=== PATIENT | female | born 1940 | race Caucasian/White ===

== ENCOUNTER 2018-12-05 19:56 | Observation (INO) ==
--- NOTE | 2018-12-05 20:24 | Emergency Department Note ---
Disposition Clinical Impression: Weakness, Dizziness UTI (urinary tract infection) Qualifiers: Urinary tract infection type: site unspecified Hematuria presence: without hematuria Qualified Code(s): N39.0 - Urinary tract infection, site not specified Disposition: Admitted As Inpatient Condition: Fair Referrals: NONE,PCP [Non-Partnered Physician] - Forms: ED Satisfaction Letter General Adult HPI - General Chief complaint: ED Chest Pain Stated complaint: chest pain/weakness/headache/left leg weakness Time Seen by Provider: 12/05/18 20:05 Source: patient, family Limitations: no limitations Nursing Notes Reviewed: Yes Vital Signs Reviewed: Yes - History of Present Illness HPI Narrative: Patient presenting to the emergency department with multiple complaints. Patient has had dizziness for the last 3 days. Significantly worse yesterday. Patient was having coffee with her son earlier today. Patient was having difficulty with slurred speech as well as word finding. Patient was significantly weak. Overall symptoms similar to prior previous stroke. Patient was having dizzy episodes while at rest. Patient then had a dizzy episode that was associated with chest pain. Chest pain to the center of her chest. Patient took home nitroglycerin with no relief. The patient states nothing is made her symptoms significant better or worse on their own. Just seemed to come and go. Patient not having significant chest pain at this time. Patient does have dizziness. Patient does have dizziness worse with movement of her eyes. Patient does have weakness to the left arm as well as to the left leg. Sensation is intact. Finger to nose has mild redirection of the left side. Patient does have left-sided deficits from the previous stroke. The patient will undergo further evaluation for possible stroke as well as for her cardiac and infectious etiologies. She will likely require admission for further delineation and management. Pain Scale: 10 - Related Data Home Medications Medication Instructions Recorded Confirmed ALPRAZolam [Xanax 0.25 MG Tablet] 0.25 mg PO TID 05/04/15 12/08/17 FLUoxetine HCl [Prozac] 20 mg PO DAILY 05/04/15 12/08/17 Hydrochlorothiazide [Microzide] 12.5 mg PO DAILY 05/04/15 12/08/17 Lisinopril [Zestril] 20 mg PO DAILY 05/04/15 12/08/17 Omeprazole [PriLOSEC] 20 mg PO DAILY 09/11/15 04/17/18 Isosorbide MONOnitrate (24 HR) 30 mg PO DAILY 12/19/16 12/08/17 [Imdur] Nitroglycerin [Nitrostat] 0.4 mg SL Q5M PRN 12/19/16 12/08/17 Previous Rx's Medication Instructions Recorded Aspirin 325 mg PO DAILY #60 tablet 05/05/15 Atorvastatin [Lipitor] 40 mg PO HS #60 tablet 05/05/15 Allergies Allergy/AdvReac Type Severity Reaction Status Date / Time Latex, Natural Rubber Allergy Itching Verified 12/19/16 09:49 prednisone Allergy See Verified 12/19/16 09:49 Comments All systems ED: reviewed and negative except as stated. Review of Systems: As Per HPI Constitutional: Reports: weakness. Denies: fever, chills Eyes: Denies: eye pain, eye discharge ENT ED: Denies: congestion Cardiovascular: Reports: chest pain, dyspnea on exertion. Denies: palpitations Respiratory: Reports: dyspnea. Denies: cough, wheezes Gastrointestinal: Reports: nausea. Denies: abdominal pain, vomiting Musculoskeletal: Reports: back pain (chronic) Integumentary: Denies: rash, abrasion, lesions Neurological: Reports: other (dizziness) Past Medical History - Past Medical History Medical history: Reports: coronary artery disease, CVA, GERD, hyperlipidemia, hypertension, renal disease Surgical history: Reports: appendectomy, hysterectomy Psychiatric history: Reports: anxiety, depression [employer]OR SUPERVISOR history: Reports: no [employer]FUSE [employer]OR SUPERVISOR history - Social History Smoking Status: Never smoker Smokeless Tobacco Status: No Alcohol use: Reports: none Drug use: Reports: none Physical Exam - General Limitations: no limitations General appearance: alert, in no apparent distress Course - Reevaluation(s) Reevaluation #1: Patient initial CT without specific etiology. Patient does have a urinary tract infection. Patient does have associated weakness and chest pain. No specific EKG changes. Patient's symptoms possibly exacerbation of old strokelike symptoms secondary to UTI however patient will need further evaluation for possi ble new stroke. Given the dizziness patient will undergo CTA prior to admission Reevaluation #2: Patient symptoms have improved somewhat on the emergency department. She feels better after hydration therapy. Patient CTA is negative for acute abnormality. Patient be admitted for further management of possible UTI as well as further stroke workup. Vital Signs Temperature 98.1 F 12/05/18 19:58 Pulse Rate 83 04/14/19 19:58 Respiratory Rate 22 12/05/18 19:58 Blood Pressure 125/89 12/05/18 19:58 O2 Sat by Pulse Oximetry 99 12/05/18 19:58 Temperature 98.1 F 12/05/18 19:58 Pulse Rate 68 12/06/18 00:00 Respiratory Rate 20 12/06/18 00:00 Blood Pressure 124/61 12/06/18 00:00 O2 Sat by Pulse Oximetry 99 12/06/18 00:00 Oxygen Delivery Oxygen Delivery Room Air Medical Decision Making - Medical Records Medical records reviewed: Yes I reviewed the patient's medical records. - Lab Data Lab results reviewed: Yes I reviewed the patient's lab results. Result diagrams: 12/05/18 20:09 12/05/18 20:09 Lab Results 12/05/18 12/05/18 12/05/18 Range/Units 20:09 20:09 20:09 WBC 7.4 (4.3-11.1) K/mcL RBC 4.57 (3.82-4.97) M/mcL Hgb 14.9 (11.5-15.4) g/dL Hct 45.4 H (35.3-44.9) % MCV 99.3 (83.0-100.0) fL MCH 32.6 (28.0-33.3) pg MCHC 32.8 (31.6-35.5) g/dL RDW 12.7 (11.5-14.5) % Plt Count 202 (140-400) K/mcL MPV 10.6 (9.4-12.4) fL PT 11.0 (9.4-12.1) Seconds INR 1.0 APTT 32.7 (26.0-36.0) Seconds Sodium 140 (136-145) mEq/L Potassium 3.9 (3.5-5.1) mEq/L Chloride 106 (98-107) mEq/L Carbon Dioxide 26 (23-29) mEq/L BUN 28 H (8-23) mg/dL Creatinine 1.01 (0.60-1.20) mg/dL Est GFR ( Amer) > 60 (> 60) Est GFR (Non-Af Amer) 53 L (> 60) BUN/Creatinine Ratio 28 H (6-26) Glucose 120 H (70-105) mg/dL Calculated Osmolality 297 (280-300) Calcium 9.3 (8.6-10.3) mg/dL Troponin I < 0.03 (< 0.04) ng/mL B-Natriuretic Peptide (Less than 100) pg/mL Urine Color (Yellow) Urine Clarity (Clear) Urine pH (5.0-8.0) pH Units Ur Specific [place] (1.010-1.025) Urine Protein (Neg-Trace) mg/dL Urine Glucose (UA) (Normal) mg/dL Urine Ketones (Negative) mg/dL Urine Blood (Negative) Urine Nitrite (Negative) Urine Bilirubin (Negative) Urine Urobilinogen (Normal) mg/dL Ur Leukocyte Esterase (Negative) Urine Microscopic RBC (0-3) per hpf Urine Microscopic WBC (0-3) per hpf Ur Squamous Epith Cells (None-Few) per lpf Urine Bacteria (None-Few) per hpf Hyaline Casts (None-Few) per lpf Ur Culture Indicated? (NO) 12/05/18 12/05/18 Range/Units 20:09 20:52 WBC (4.3-11.1) K/mcL RBC (3.82-4.97) M/mcL Hgb (11.5-15.4) g/dL Hct (35.3-44.9) % MCV (83.0-100.0) fL MCH (28.0-33.3) pg MCHC (31.6-35.5) g/dL RDW (11.5-14.5) % Plt Count (140-400) K/mcL MPV (9.4-12.4) fL PT (9.4-12.1) Seconds INR APTT (26.0-36.0) Seconds Sodium (136-145) mEq/L Potassium (3.5-5.1) mEq/L Chloride (98-107) mEq/L Carbon Dioxide (23-29) mEq/L BUN (8-23) mg/dL Creatinine (0.60-1.20) mg/dL Est GFR ( Amer) (> 60) Est GFR (Non-Af Amer) (> 60) BUN/Creatinine Ratio (6-26) Glucose (70-105) mg/dL Calculated Osmolality (280-300) Calcium (8.6-10.3) mg/dL Troponin I (< 0.04) ng/mL B-Natriuretic Peptide 36 (Less than 100) pg/mL Urine Color Yellow (Yellow) Urine Clarity Clear (Clear) Urine pH 7.0 (5.0-8.0) pH Units Ur Specific [place] 1.012 (1.010-1.025) Urine Protein Negative (Neg-Trace) mg/dL Urine Glucose (UA) Normal (Normal) mg/dL Urine Ketones Negative (Negative) mg/dL Urine Blood Negative (Negative) Urine Nitrite Negative (Negative) Urine Bilirubin Negative (Negative) Urine Urobilinogen Normal (Normal) mg/dL Ur Leukocyte Esterase Moderate H (Negative) Urine Microscopic RBC 5-15 H (0-3) per hpf Urine Microscopic WBC 30-50 H (0-3) per hpf Ur Squamous Epith Cells Many H (None-Few) per lpf Urine Bacteria None Seen (None-Few) per hpf Hyaline Casts None Seen (None-Few) per lpf Ur Culture Indicated? NO. A (NO) - Radiology Data Radiology results reviewed: Yes I reviewed the patient's radiology results. Head CT 12/05/18 20:20 IMPRESSION: 1. No acute intracranial abnormality. 2. Mild white matter hypoattenuation, likely the sequela of chronic small vessel ischemia. If there is persistent clinical concern for acute ischemia, MRI would be the more sensitive modality. D/ / [place] / [place] Interpreting Provider: [place] Chest X-Ray 12/05/18 20:21 IMPRESSION: No acute process. D/ / Tesfaye Sanchez MD / Tesfaye Sanchez MD Interpreting Provider: Tesfaye Sanchez MD Head CTA 12/05/18 22:00 IMPRESSION: No significant arterial narrowing in the head or the neck. Heterogeneous thyroid tissue likely benign. No follow-up imaging is recommended D/ / Ramses Ware / Ramses Ware Interpreting Provider: Ramses Ware Neck CTA 12/05/18 22:00 IMPRESSION: No significant arterial narrowing in the head or the neck. Heterogeneous thyroid tissue likely benign. No follow-up imaging is recommended D/ / Ramses Ware / [place] Ware Interpreting Provider: Ramses Ware - EKG Data EKG #1 EKG attestation: Yes I reviewed and interpreted this EKG. EKG results narrative: EKG shows sinus rhythm with a heart rate of 80 IN 156 QRS [address] elevations or depressions. Patient does have T-wave flattening in aVL. No other abnormalities compared to old EKG of 10/23/16.
[2018-12-05 20:35] LABS: Hematocrit 45.4 % (35.3-44.9); Hemoglobin 14.9 g/dL (11.5-15.4); Mean Corpuscular HGB Conc 32.8 g/dL (31.6-35.5); Mean Corpuscular Hemoglobin 32.6 pg (28.0-33.3); Mean Corpuscular Volume 99.3 fL (83.0-100.0); Mean Platelet Volume 10.6 fL (9.4-12.4); Platelet Count 202 K/mcL (140-400); Red Blood Count 4.57 M/mcL (3.82-4.97); Red Cell Distribution Width 12.7 % (11.5-14.5)
[2018-12-05 20:49] LABS: Activated Partial Thrombo Time 32.7 Seconds (26.0-36.0)
[2018-12-05 20:57] LABS: BUN/Creatinine Ratio 28 (6-26); Blood Urea Nitrogen 28 mg/dL (8-23); Calcium 9.3 mg/dL (8.6-10.3); Carbon Dioxide 26 mEq/L (23-29); Chloride 106 mEq/L (98-107); Glucose 120 mg/dL (70-105); Osmolality,Calculated 297 (280-300); Potassium 3.9 mEq/L (3.5-5.1); Sodium 140 mEq/L (136-145); Troponin I < 0.03 ng/mL (< 0.04); eGFR For Non-African Americans 53 (> 60)
[2018-12-05 21:13] LABS: Bilirubin,Urine Negative (Negative); Blood,Urine Negative (Negative); Clarity,Urine Clear (Clear); Color,Urine Yellow (Yellow); Glucose,Urine (UA) Normal (Normal); Ketones,Urine Negative (Negative); Leukocyte Esterase,Urine Moderate (Negative); Nitrite,Urine Negative (Negative); Protein,Urine Negative (Neg-Trace); Specific Gravity,Urine 1.012 (1.010-1.025); Urobilinogen,Urine Normal (Normal)
[2018-12-05 21:15] LABS: Bacteria,Urine None Seen per hpf (None-Few); Hyaline Casts,Urine None Seen per lpf (None-Few); Squamous Epithelial Cell,Urine Many per lpf (None-Few); WBC,Urine 30-50 per hpf (0-3)
[2018-12-05] MEDS ORDERED: 0.9 % Sodium Chloride 500 ML IVC ONE ×2 (21:22→22:15)
[2018-12-05] MEDS ORDERED: Isovue-370 500 ML BOTTLE IVP ONE (22:00)
[2018-12-05] MEDS ORDERED: cefTRIAXone 1,000 MG in Water for inj. (sterile) 20 ML 10 ML IVP ONE (23:11)
[2018-12-06 04:57] LABS: INR 1.1; Prothrombin Time 11.9 Seconds (9.4-12.1)
[2018-12-06 05:11] LABS: Alanine Aminotransferase 10 Units/L (7-52); Albumin 3.5 g/dL (3.5-5.7); Albumin/Globulin Ratio 1.8 (1.1-2.2); Alkaline Phosphatase 59 Units/L (34-104); Aspartate Amino Transferase 13 Units/L (13-39); BUN/Creatinine Ratio 24 (6-26); Bilirubin,Total 0.5 mg/dL (0.3-1.0); Blood Urea Nitrogen 22 mg/dL (8-23); Calcium 8.4 mg/dL (8.6-10.3); Carbon Dioxide 25 mEq/L (23-29); Chloride 109 mEq/L (98-107); Cholesterol 145 mg/dL (< 200); Globulin 1.9 g/dL (2.4-3.5); Glucose 135 mg/dL (70-105); HDL Cholesterol 48 mg/dL (40-59); LDL Cholesterol,Calculated 80 mg/dL (0-99); Osmolality,Calculated 297 (280-300); Potassium 3.9 mEq/L (3.5-5.1); Sodium 141 mEq/L (136-145); Total Protein 5.4 g/dL (6.4-8.9); Triglycerides 86 mg/dL (< 150); eGFR For Non-African Americans 59 (> 60)
[2018-12-06 05:12] LABS: Troponin I < 0.03 ng/mL (< 0.04)
--- NOTE | 2018-12-06 06:20 | Internal Med History&Physical ---
Date of Encounter: 12/06/18 Time of Encounter: 06:13 Internal Medicine - H&P: HPI Chief complaint: Headache Plans for Post Hospital Care: Home History of present illness: Ms. Agudelo is a 78 year old female with a past medical history of coronary artery disease, CVA, GERD, hyperlipidemia, hypertension and migraine who presented to the ED with complaints of dizziness that has gotten progressively worse over the past 3 days. Yesterday she also noted slurred speech and word finding difficulties. Patient reports similar presentation during previous stroke. A also endorses chest pain that occurred with her dizzy spell located in the center of her chest associated with sensations of palpitation and nausea. Patient took nitroglycerin at home with no relief. Patient also reports left- sided neck pain radiating to the back of her ear with ear pain as well. No reports of rash. No reports of fever, chills, shortness of breath, vomiting or diarrhea. CT angiogram of the head and neck demonstrated no significant arterial narrowing. Lab workup was relatively unremarkable. EKG showed no ischemic changes. UA suggestive of UTI. Patient admitted for stroke workup. Past Med Surg Social Fam HX - Past Medical History Medical history: coronary artery disease, CVA, GERD, hyperlipidemia, hypertension, renal disease Additional medical history: Left side weakness Psychiatric history: anxiety, depression - Past Surgical History Surgical History: appendectomy, hysterectomy Additional surgical history: bladder tuck, kidney stone removal - Social History Smoking Status: Never smoker Smokeless Tobacco Status: No Alcohol use: none Drug use: none - Family History Mother Living Status: Age at : 63 Cause of : COPD Father Living Status: Age at : 54 Cause of : heart attack Internal Medicine - H&P: Meds FLUoxetine HCl [Prozac] 20 mg PO DAILY 05/04/15 [History] Hydrochlorothiazide [Microzide] 12.5 mg PO DAILY 05/04/15 [History] Lisinopril [Zestril] 20 mg PO DAILY 05/04/15 [History] Atorvastatin [Lipitor] 40 mg PO HS #60 tablet 05/05/15 [Rx] Isosorbide MONOnitrate (24 HR) [Imdur] 30 mg PO DAILY 12/19/16 [History] Nitroglycerin [Nitrostat] 0.4 mg SL Q5M PRN 12/19/16 [History] Aspirin [Lo-Dose Aspirin EC] 81 mg PO DAILY 12/06/18 [History] Pantoprazole Sodium 40 mg PO DAILY 12/06/18 [History] Ranolazine [Ranexa] 500 mg PO BID 12/06/18 [History] Allergy/AdvReac Type Severity Reaction Status Date / Time Latex, Natural Rubber Allergy Itching Verified 12/19/16 09:49 prednisone Allergy See Verified 12/19/16 09:49 Comments All Systems PM: A 10-system review of systems was performed and is negative for pertinent findings except as documented above in the HPI. - Constitutional Constitutional: no chills, no fever(s), no night sweats - EENT Eyes: no change in vision, no discharge, no pain, no photophobia Ears: no ear discharge, no ear pain, no tinnitus Nose, mouth and throat: no dysphagia, no nasal discharge, no neck pain, no sore throat - Cardiovascular Cardiovascular ROS IM: no chest pain, no diaphoresis, no dyspnea, no lighthe adedness, no palpitations, no syncope - Respiratory Respiratory: no cough, no dyspnea, no wheezing, no excessive phlegm production - Gastrointestinal Gastrointestinal: no abdominal pain, no diarrhea, no hematemesis, no hem atochezia, no melena, no nausea, no vomiting - Genitourinary Genitourinary: no change in urinary stream, no dysuria, no flank pain, no hematuria - Musculoskeletal Musculoskeletal ROS IM: no numbness, no tingling - Integumentary Integumentary IM: no rash, no unusual bruising - Neurological Neurological ROS: no confusion, no convulsions, no focal weakness, no numbness, no tingling, no tremor(s) - Hematologic/Lymphatic Hematologic/Lymphatic: no easy bruising - Constitutional Vitals: Temp Pulse Resp BP Pulse Ox 97.6 F 60 14 152/70 98 12/06/18 02:16 12/06/18 02:16 12/06/18 02:16 12/06/18 02:16 12/06/18 02:16 Exam: General: Alert and oriented 3 lying in bed in no acute distress Skin:Normal color, no rash, no lesions. HEENT:EOM, pupils equal, round and reactive. Cardiovascular:Normal S1 & S2, no rubs, murmurs or gallops. No JVD. Pulse regular. Lungs:Normal breath sounds, no wheezes or crackles. Abdomen:Soft, non-tender, no rigidity. Extremities:No deformity, no edema or tenderness, no joint swelling or clubbing. Neurological:Normal cognition ; cranial nerves II through XII intact. Mild left-sided pronator drift. Lower extremity muscle strength 4 out of 5 right; 3 out of 5 left; upper extremity strength 5 out of 5 right; 3 out of 5 left earache sensation intact. Pulses:Carotid and radial pulses normal +2. Rest of the physical exam is non contributory Internal Med - H&P Results - Labs CBC & Chem 7: 12/05/18 20:09 12/06/18 04:19 Labs: Short CBC 12/05/18 Range/Units 20:09 WBC 7.4 (4.3-11.1) K/mcL Hgb 14.9 (11.5-15.4) g/dL Hct 45.4 H (35.3-44.9) % Plt Count 202 (140-400) K/mcL BMP 12/05/18 12/06/18 20:09 04:19 Sodium 140 141 Potassium 3.9 3.9 Chloride 106 109 H Carbon Dioxide 26 25 BUN 28 H 22 Creatinine 1.01 0.92 Glucose 120 H 135 H Calcium 9.3 8.4 L Cardiac Enzymes 12/05/18 12/06/18 Range/Units 20:09 04:19 Troponin I < 0.03 < 0.03 (< 0.04) ng/mL Liver Function 12/06/18 Range/Units 04:19 Total Bilirubin 0.5 (0.3-1.0) mg/dL AST 13 (13-39) Units/L ALT 10 (7-52) Units/L Alkaline Phosphatase 59 (34-104) Units/L Albumin 3.5 (3.5-5.7) g/dL Urine 12/05/18 Range/Units 20:52 Urine Color Yellow (Yellow) Urine Clarity Clear (Clear) Urine pH 7.0 (5.0-8.0) pH Units Ur Specific [place] 1.012 (1.010-1.025) Urine Protein Negative (Neg-Trace) mg/dL Urine Glucose (UA) Normal (Normal) mg/dL - Impressions ITS Impressions Head CT 12/05/18 20:20 IMPRESSION: 1. No acute intracranial abnormality. 2. Mild white matter hypoattenuation, likely the sequela of chronic small vessel ischemia. If there is persistent clinical concern for acute ischemia, MRI would be the more sensitive modality. D/ / [place] / [place] Interpreting Provider: [place] Chest X-Ray 12/05/18 20:21 IMPRESSION: No acute process. D/ / Tesfaye Sanchez MD / Tesfaye Sanchez MD Interpreting Provider: Tesfaye Sanchez MD Head CTA 12/05/18 22:00 IMPRESSION: No significant arterial narrowing in the head or the neck. Heterogeneous thyroid tissue likely benign. No follow-up imaging is recommended D/ / Ramses Ware / Ramses Ware Interpreting Provider: Ramses Ware Neck CTA 12/05/18 22:00 IMPRESSION: No significant arterial narrowing in the head or the neck. Heterogeneous thyroid tissue likely benign. No follow-up imaging is recommended D/ / Ramses Ware / Ramses Ware Interpreting Provider: Ramses Ware - Assessment and Plan (1) Dizziness Current Visit: Yes Status: Acute Assessment and plan: Patient presents with dizziness described as the room spinning associated with nausea and word finding difficulty. Concern for posterior circulatory stroke. CT angiogram of the head and neck was unremarkable. Symptoms appear to have improved with fluids. -Allow for permissive hypertension -By mouth aspirin 325 once -Neurochecks -We will obtain echocardiogram and MRI in the morning. -Appreciate neurology input (2) Chest pain Current Visit: No Status: Acute Assessment and plan: Patient reports substernal chest pain. Patient has a history of coronary artery diseas. Patient underwent left heart catheter approximately one year ago which showed EF of 65% with single-vessel coronary artery disease. EKG and troponins 2 were unremarkable. No further reports of chest pain at this time. - telemetry - echocardiogram - continue workup for possible stroke - consider clear stress test once stroke ruled out Qualifiers: Ischemic chest pain type: unspecified angina pectoris type Qualified Code(s): I25.9 - Chronic ischemic heart disease, unspecified (3) UTI (urinary tract infection) Current Visit: Yes Status: Acute Assessment and plan: UA shows moderate leukocyte esterase. Patient received 1 dose of ceftriaxone in the ED. Urine cultures were obtained. We will continue ceftriaxone for now and follow-up culture Qualifiers: Urinary tract infection type: site unspecified Hematuria presence: without hematuria Qualified Code(s): N39.0 - Urinary tract infection, site not specified (4) Anxiety and depression Current Visit: No Status: Acute (5) DVT prophylaxis Current Visit: No Status: Acute Assessment and plan: Subcutaneous heparin - Time Spent With Patient Total time spent is greater than 50% in coordination of care (as documented) at patient's floor/unit and/or counseling patient:
[2018-12-06] MEDS ORDERED: Aspirin 325 MG TABLET PO ONE (06:38)
[2018-12-06] MEDS ORDERED: Naloxone 0.4 MG/ML INJ IVP PRN (06:52)
[2018-12-06] MEDS: *HR* Heparin 5,000 UNIT/ML VIAL SQ SCH ×3 (07:44→22:58)
[2018-12-06] MEDS: Acetaminophen 325 MG TABLET PO PRN ×2 (07:47→20:06)
[2018-12-06 08:25] LABS: Estimated Average Glucose 128 mg/dl; Hemoglobin A1C 6.1 %
--- NOTE | 2018-12-06 08:59 | Neurology - Consult Note ---
<Sean Thornton - Last Filed: 12/06/18 11:42> Date of Encounter: 12/06/18 Time of Encounter: 09:10 Assessment and Plan (1) Dizziness Current Visit: Yes Status: Acute - Differential for this is wide including BPPV, brainstem stroke, shingles, vestibular neuritis, otitis media, bells palsy Plan - Agree with MRI to rule out ischemia - Recommend starting trial dose of acyclovir 400 mg 5x daily as well as prednisone 60 mg daily x 5 days, however patient is reportedly allergic to prednisone. Unclear reaction. - (2) Benign paroxysmal positional vertigo Current Visit: No Status: Acute History of Present Illness Chief complaint: Dizziness HPI: Ms. Agudelo is a 78 year old female with past medical history of CAD, CVA, GERD, hyperlipidemia, hypertension, migraine presents emergency department with complaints of dizziness 3 days. She states that over the past 3 days, she does feel like the room is spinning with no inciting events. She has expressed this before, approximately 10 years ago when she had her first and only CVA. She has no residual deficits following this. She states since her admission, her symptoms have improved. She denies any symptoms of fevers, chills, chest pain, shortness of breath, dysphagia, dysarthria. She was noted to have slurred speech and word finding difficulties or to admission, per admitting H&P. She is not having any focal weakness, numbness, tingling, memory issues at this time. has also been seen and evaluated by neurology in the past. On 05/04/15 she was admitted to the hospital for unresponsive episode and this was thought to be secondary to dehydration. At that time, she was also suspected to have bppv given her left ear pain as well as vertigo particularly with movement. At that time however she was not discharged on a prescription of Antivert. In the emergency room, vital signs are significant for a respiratory rate of 22, otherwise within normal limits and she was tolerating 99% on room air. Head CT was obtained and showed no acute intracranial abnormality but did show mild white matter hypoattenuation which was thought to be likely a sequela of chronic small vessel ischemia. Chest x-ray was negative. Head and neck CTA was also performed and showed no significant arterial narrowing in the head or the neck. Today during examination, patient's symptoms have improved although she still is having a little bit of lightheadedness but this feels different. She is also complaining of severe left-sided neck pain which is located in the left parietal region extending from her hairline to her shoulder. This has been present since admission. She is not having any difficulty moving her neck but does admit to pain with movement as well as mild pain with palpation. Past Med Surg Social Fam HX - Past Medical History Medical history: coronary artery disease, CVA, GERD, hyperlipidemia, hypertension, renal disease Additional medical history: Left side weakness Psychiatric history: anxiety, depression - Past Surgical History Surgical History: appendectomy, hysterectomy Additional surgical history: bladder tuck, kidney stone removal - Social History Smoking Status: Never smoker Smokeless Tobacco Status: No Alcohol use: none Drug use: none - Family History Mother Living Status: Age at : 63 Cause of : COPD Father Living Status: Age at : 54 Cause of : heart attack Medications and Allergies ALPRAZolam [Xanax 0.25 MG Tablet] 0.25 mg PO TID 05/04/15 [History] FLUoxetine HCl [Prozac] 20 mg PO DAILY 05/04/15 [History] Hydrochlorothiazide [Microzide] 12.5 mg PO DAILY 05/04/15 [History] Lisinopril [Zestril] 20 mg PO DAILY 05/04/15 [History] Omeprazole [PriLOSEC] 20 mg PO DAILY 05/04/15 [History] Aspirin 325 mg PO DAILY #60 tablet 05/05/15 [Rx] Atorvastatin [Lipitor] 40 mg PO HS #60 tablet 05/05/15 [Rx] Isosorbide MONOnitrate (24 HR) [Imdur] 30 mg PO DAILY 12/19/16 [History] Nitroglycerin [Nitrostat] 0.4 mg SL Q5M PRN 12/19/16 [History] Allergy/AdvReac Type Severity Reaction Status Date / Time Latex, Natural Rubber Allergy Itching Verified 12/19/16 09:49 prednisone Allergy See Verified 12/19/16 09:49 Comments All Systems: The remainder of the systems were reviewed and are negative Review of Systems: - Constitutional: Denies fevers, chills, weight loss, generalized fatigue - Head/Neck: Admits to neck pain. Denies DUARTE, neck stiffness - EENT: Denies vision changes/blurriness, tinnitus, auditory changes, rhinorrhea, congestion, sore throat, odynaphagia - CVS: Denies chest pain, palpitations - Pulm: Denies SOB, cough, sputum - Skin: Denies rashes, ulcers, color changes, - Neuro: Denies DUARTE, paresthesias, focal deficits, ataxia, n/t Physical Examination - Vital Signs Vital Signs: Initial Vital Signs Temp Pulse Resp BP Pulse Ox 98.1 F 83 22 125/89 99 12/05/18 19:58 12/05/18 19:58 12/05/18 19:58 12/05/18 19:58 12/05/18 19:58 - Constitutional General appearance: comfortable - Neurologic Sensorimotor examination: intact Detailed motor examination: grossly full strength in all extremities Motor examination - right side: 4/5: deltoids, biceps, triceps, complaint investigator, hip flexors, tibialis Anterior, quadriceps, plantarflexion Motor examination - left side: 4/5: deltoids, biceps, triceps, hip flexors, complaint investigator, quadriceps, tibialis Anterior, plantarflexion Detailed sensory examination: intact Reflexes: Biceps: 2+, Patella: 2+ Mental Status Examination: awake, alert, oriented to person, oriented to place, oriented to time, follows commands appropriately, answers questions appropriately, no aphasia Cranial nerve examination: PERRL, EOMI, visual [place] intact, sensory to face in tact, no facial asymmetry is present, no dysarthria, hearing is intact symmetrically, soft palate elevates bilaterally upon phonation, flexes SCM and trapezius muscles symmetrically with full power, tongue protrudes midline Cerebellar examination: performs finger to nose and heel to white symmetrically without ataxia Results - Laboratory Findings CBC and BMP: 12/05/18 20:09 12/06/18 04:19 Abnormal lab findings: Abnormal lab results Hct 45.4 % (35.3-44.9) H 12/05/18 20:09 Chloride 109 mEq/L (98-107) H 12/06/18 04:19 Est GFR (Non-Af Amer) 59 (> 60) L 12/06/18 04:19 Glucose 135 mg/dL (70-105) H 12/06/18 04:19 Hemoglobin A1c 6.1 % (-5.6) H 12/06/18 04:19 Calcium 8.4 mg/dL (8.6-10.3) L 12/06/18 04:19 Serum Total Protein 5.4 g/dL (6.4-8.9) L 12/06/18 04:19 Globulin 1.9 g/dL (2.4-3.5) L 12/06/18 04:19 Ur Leukocyte Esterase Moderate (Negative) H 12/05/18 20:52 Urine Microscopic RBC 5-15 per hpf (0-3) H 12/05/18 20:52 Urine Microscopic WBC 30-50 per hpf (0-3) H 12/05/18 20:52 Ur Squamous Epith Cells Many per lpf (None-Few) H 12/05/18 20:52 Ur Culture Indicated? NO. (NO) A 12/05/18 20:52 Consult Discharge Plan - Plan Referrals: Yaniv Tran, [Primary Care Provider] - <Alexandro Solorio - Last Filed: 12/06/18 13:08> Date of Encounter: 12/06/18 Assessment and Plan (1) Dizziness Current Visit: Yes Status: Acute I have personally performed a [id number] assessment of the patient and have reviewed the PA/BACON STRINGER note. My impressions are as follows: I agree with the differential diagnosis in the plan presented by the neurology resident. We will obtain an MRI scan of the brain to rule out evidence of brainstem ischemia. If the MRI scan is negative then I will defer further management of the vestibular neuronitis to the primary care team. I agree with the acyclovir and steroid therapy as well. We will reassess after the MRI. History of Present Illness HPI: I have personally performed a [id number] assessment of the patient and have reviewed the PA/BACON STRINGER note. My impressions are as follows: The chart was reviewed, the patient was seen and examined independently. His was discussed with the neurology resident. I agree with his assessment of the history of present illness as stated above. She does have symptoms of left mastoid pain radiating into the neck that she rates at about 8 on a scale of 10. Also complains of vertigo in addition had slurred speech and numbness and weakness of the left arm and leg. She states that she has been dragging her leg to continue to a previous stroke. I did examine her tympanic membranes bilaterally in the left TM was erythematous and retracted. All Systems: The remainder of the systems were reviewed and are negative Review of Systems: The balance of the systems review is negative. Physical Examination - Vital Signs Vital Signs: Initial Vital Signs Temp Pulse Resp BP Pulse Ox 98.1 F 83 22 125/89 99 12/05/18 19:58 12/05/18 19:58 12/05/18 19:58 12/05/18 19:58 12/05/18 19:58 - Exam Exam: General Examination: *CONSTITUTIONAL: normal *GENERAL APPEARANCE OF PATIENT appears healthy and well groomed *EYES: pupils equal, round, reactive to light and accommodation, conjunctiva clear without masses or ulcerations, fundi normal. *CARDIOVASCULAR no peripheral edema, distal temperature normal, dorsalis pedis pulses normal. Refer to vital signs Musculoskeletal: *GAIT AND STATION normal, with normal Romberg testing, no abnormalities such as broad base gait or spasticity *ASSESSMENT OF MUSCLE STRENGTH IN THE UPPER AND LOWER EXTREMITIES is normal strength bulk of the right deltoid, right biceps right triceps and right complaint investigator. She also has normal strength of the right hip flexors quadriceps right anterior tibialis and gastrocnemius muscles. There is giveaway weakness of the muscles of the left upper extremity as well as the left lower extremity. *MUSCLE TONE IN THE UPPER AND LOWER EXTREMITIES normal. No abnormal movements, fasciculations or atrophy identified. Neurological: *ORIENTATION to time and place *RECURRENT AND REMOTE MEMORY intact *ATTENTION AND CONCENTRATION are normal *LANGUAGE FUNCTION no significant aphasia or dysarthia was noted. *FUND OF KNOWLEDGE aware of current events, past history, vocabulary *MENTAL attention span and concentration normal. *CN II optic fundi were normal, no papilledema noted. *CN III,IV, PERRLA extraocular eye movements were full, no nystagmus and no ptosis noted. *CN V shows normal sensation and jaw opens symmetrically. *CN VII shows normal facial movement symmetrically, upper and lower bilaterally. *CN VIII shows no significant hearing loss on examination in the office. *CN IX,,X palate elevated symmetrically and normal gag reflex was noted. *CN XI normal strength in the sternocleidomastoid muscles, symmetrical shoulder shrugging. *CN XII tongue protruded in the midline, with normal strength and movemen t. *SENSORY EXAMINATION pinprick sensation intact, and light touch(vibration sense). *REFLEXES: deep tendon reflexes were normal and symmetrical , grade 2/4 diffusely, no pathological reflexes were noted. *CEREBELLAR TESTING normal finger to nose, heel/knee/white, and tandem wal k. *PAIN LEVEL -0 Results - Laboratory Findings CBC and BMP: 12/05/18 20:09 12/06/18 04:19 Abnormal lab findings: Abnormal lab results Hct 45.4 % (35.3-44.9) H 12/05/18 20:09 Chloride 109 mEq/L (98-107) H 12/06/18 04:19 Est GFR (Non-Af Amer) 59 (> 60) L 12/06/18 04:19 Glucose 135 mg/dL (70-105) H 12/06/18 04: Hemoglobin A1c 6.1 % (-5.6) H 12/06/18 04:19 Calcium 8.4 mg/dL (8.6-10.3) L 12/06/18 04:19 Serum Total Protein 5.4 g/dL (6.4-8.9) L 12/06/18 04:19 Globulin 1.9 g/dL (2.4-3.5) L 12/06/18 04:19 Ur Leukocyte Esterase Moderate (Negative) H 12/05/18 20:52 Urine Microscopic RBC 5-15 per hpf (0-3) H 12/05/18 20:52 Urine Microscopic WBC 30-50 per hpf (0-3) H 12/05/18 20:52 Ur Squamous Epith Cells Many per lpf (None-Few) H 12/05/18 20:52 Ur Culture Indicated? NO. (NO) A 12/05/18 20:52
[2018-12-06] MEDS: Acyclovir 200 MG CAPSULE PO SCH ×4 (12:39→22:58)
[2018-12-06] MEDS ORDERED: Nitroglycerin 0.4 MG TAB.SUBL SL PRN (16:00)
[2018-12-06] MEDS ORDERED: ALPRAZolam 0.25 MG TABLET PO PRN (16:00)
--- NOTE | 2018-12-06 16:00 | Internal Med Progress Note ---
Hospitalist Progress Note - Encounter Date of Encounter: 12/06/18 Time of Encounter: 15:30 - Subjective Interval History: Ms. Agudelo is a 78 year old female with a past medical history of coronary artery disease, CVA, GERD, hyperlipidemia, hypertension and migraine who presented to the ED with complaints of dizziness that has gotten progressively worse over the past 3 days. Yesterday she also noted slurred speech and word finding difficulties. Patient reports similar presentation during previous stroke. She also c/o chest pain, located sub sternally, non radiating and associated with diaphoresis. She denied any more active CP now. She still feels dizzy and vertigo. - Exam Vitals: Temp Pulse Resp BP Pulse Ox 97.8 F 66 15 131/57 98 12/06/18 14:39 12/06/18 14:39 12/06/18 14:39 12/06/18 14:39 12/06/18 14:39 Exam: Gen: Alert, awake, Oriented to time,place and person Chest: Diminished breath sounds B/L, No wheezing, No crackles, No rales Heart: S1S2+ RRR No murmurs Abd: Soft, NT, BS +, No organomegaly Ext: No edema, pulses are palpable, No calf tenderness Neuro : Benign findings, no focal neuro deficit Skin: No rash. - Assessment and Plan (1) Dizziness Current Visit: Yes Status: Acute Assessment and Plan: Her symptoms are consistent with benign positional vertigo however still need to rule out posterior circulation CVA will follow-up on brain MRI continue aspirin and statin appreciate neurology recommendations placed on meclizine (2) Chest pain Current Visit: No Status: Acute Assessment and Plan: So far serial troponin's were negative no acute EKG changes noticed continue aspirin will follow-up echocardiogram since patient is high risk for ACS will consider nuclear stress test in the morning (3) Anxiety and depression Current Visit: No Status: Acute Assessment and Plan: Resumed home medications (4) DVT prophylaxis Current Visit: No Status: Acute Assessment and Plan: Subcutaneous heparin (5) UTI (urinary tract infection) Current Visit: Yes Status: Acute Assessment and Plan: UA shows moderate leukocyte esterase. Continue IV Rocephin will follow-up on urine culture - Time Spent with Patient Total time spent is greater than 50% in coordination of care (as documented) at patient's floor/unit and/or counseling patient: Internal Medicine: Result - Labs CBC & Chem 7: 12/05/18 20:09 12/06/18 04:19 Labs: Short CBC 12/05/18 Range/Units 20:09 WBC 7.4 (4.3-11.1) K/mcL Hgb 14.9 (11.5-15.4) g/dL Hct 45.4 H (35.3-44.9) % Plt Count 202 (140-400) K/mcL BMP 12/05/18 12/06/18 20:09 04:19 Sodium 140 141 Potassium 3.9 3.9 Chloride 106 109 H Carbon Dioxide 26 25 BUN 28 H 22 Creatinine 1.01 0.92 Glucose 120 H 135 H Calcium 9.3 8.4 L Cardiac Enzymes 12/05/18 12/06/18 Range/Units 20:09 04:19 Troponin I < 0.03 < 0.03 (< 0.04) ng/mL Liver Function 12/06/18 Range/Units 04:19 Total Bilirubin 0.5 (0.3-1.0) mg/dL AST 13 (13-39) Units/L ALT 10 (7-52) Units/L Alkaline Phosphatase 59 (34-104) Units/L Albumin 3.5 (3.5-5.7) g/dL Urine 12/05/18 Range/Units 20:52 Urine Color Yellow (Yellow) Urine Clarity Clear (Clear) Urine pH 7.0 (5.0-8.0) pH Units Ur Specific [place] 1.012 (1.010-1.025) Urine Protein Negative (Neg-Trace) mg/dL Urine Glucose (UA) Normal (Normal) mg/dL - ABG Interpretation ABG results: PT/INR, D-dimer PT 11.9 Seconds (9.4-12.1) 12/06/18 04:19 - Impressions Impressions Head CT 12/05/18 20:20 IMPRESSION: 1. No acute intracranial abnormality. 2. Mild white matter hypoattenuation, likely the sequela of chronic small vessel ischemia. If there is persistent clinical concern for acute ischemia, MRI would be the more sensitive modality. D/ / aLke Col[place] / [place] Interpreting Provider: [place] Chest X-Ray 12/05/18 20:21 IMPRESSION: No acute process. D/ / Tesfaye Sanchez MD / Tesfaye Sanchez MD Interpreting Provider: Tesfaye Sanchez MD Head CTA 12/05/18 22:00 IMPRESSION: No significant arterial narrowing in the head or the neck. Heterogeneous thyroid tissue likely benign. No follow-up imaging is recommended D/ / Ramses Ware / Ramses Ware Interpreting Provider: Ramses Ware Neck CTA 12/05/18 22:00 IMPRESSION: No significant arterial narrowing in the head or the neck. Heterogeneous thyroid tissue likely benign. No follow-up imaging is recommended D/ / Ramses Ware / Ramses Ware Interpreting Provider: Ramses Ware Consult Discharge Plan - Plan Referrals: Yaniv Tran DO [Primary Care Provider] - (5) UTI (urinary tract infection) Qualifiers: Urinary tract infection type: site unspecified Hematuria presence: without hematuria Qualified Code(s): N39.0 - Urinary tract infection, site not specified
[2018-12-06] MEDS ORDERED: Isosorbide MONOnitrate (24 HR) 30 MG TAB.ER.24H PO SCH (16:15)
[2018-12-06] MEDS: Lisinopril 20 MG TABLET PO SCH (16:32)
--- NOTE | 2018-12-06 16:43 | Electrocardiograph Report ---
[address] [place], [place] [address] Test Date: 2018-12-05 Pat Name: Joslyn Agudelo Department: [id number] Room: 3B54 Gender: F Sas Bi Developer: : 1940 Requested By: [place] Bacon Order Number: [id number] Reading MD: Josh Duarte Measurements Intervals [place] Rate: 80 P: 71 SD: 156 QRS: 73 QRSD: 91 T: 57 QT: 369 QTc: 426 Interpretive Statements Sinus rhythm Electronically Signed On 12-06-2018 16:41:48 EDT by Josh Duarte
[2018-12-07] MEDS ORDERED: cefTRIAXone 1,000 MG in Water for inj. (sterile) 20 ML 10 ML IVP SCH
[2018-12-07] MEDS: *HR* Heparin 5,000 UNIT/ML VIAL SQ SCH ×2 (05:07→13:29)
[2018-12-07] MEDS ORDERED: Regadenoson 0.4 MG/5 ML SYRINGE IVP ONE (06:26)
[2018-12-07] MEDS ORDERED: FLUoxetine 20 MG CAPSULE PO SCH (09:00)
[2018-12-07] MEDS ORDERED: Aspirin 325 MG TABLET PO SCH (09:00)
--- NOTE | 2018-12-07 09:14 | Neurology Progress Note ---
<Sean Thornton - Last Filed: 12/07/18 15:23> Date of Encounter: 12/07/18 Time of Encounter: 10:38 Assessment and Plan (1) Dizziness Current Visit: Yes Status: Acute - Differential for this is wide including BPPV, shingles, vestibular neuritis, otitis media, bells palsy - Rays for stroke unlikely at this time given negative MRI as below - MRI of the brain on 12/06/18 shows no acute infarct with chronic white matter changes - Patient does report improvement of symptoms today - Acyclovir started yesterday, patient tolerating well - Prednisone was not started as she reports an allergy to prednisone. She states that she becomes dizzy after administration however this was a long time ago - Started on ceftriaxone yesterday per primary team for suspected UTI Plan - Agree with MRI to rule out ischemia - Recommend continuing trial dose of acyclovir 400 mg 5x daily - Recommend continue aspirin and statin - Continue antivert as needed. 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 Brock was seen and examined at bedside this morning. She states that overall she is doing better and her headache and neck pain have improved with medication. Her dizziness is much improved with antivert. Her head and neck pain are still present but this is improved with tylenol No overnight events. Objective - Constitutional Vitals: Temp Pulse Resp BP Pulse Ox 97.8 F 74 16 132/68 96 12/07/18 03:42 12/07/18 03:42 12/07/18 03:42 12/07/18 03:42 12/07/18 03:42 General appearance: Present: cooperative, A&O X 3, no acute distress, answers questions appropriately - Head Head exam: Present: atraumatic, normal inspection, normocephalic - Eye Eye exam: Present: EOMI, PERRL - Neurological Exam Sensorimotor examination: Present: intact Motor Examination: Present: grossly full strength in all extremities Motor examination - right side: 45: biceps, triceps, back end developer, hip flexors, tibialis Anterior, quadriceps, toe extension (EHL), plantarflexion Motor examination - left side: 45: deltoids, biceps, triceps, hip flexors, back end developer, quadriceps, tibialis Anterior, plantarflexion Sensation intact: Present: intact Reflexes: Biceps: 2+, Patella: 2+ Mental Status Examination: Present: awake, alert, oriented to person, oriented to place, oriented to time, follows commands appropriately, answers questions appropriately, no aphasia Cranial nerve examination: Present: PERRL, EOMI, visual hatfield intact, sensory to face intact, no facial asymmetry is present, no dysarthria, hearing is intact symmetrically, soft palate elevates bilaterally upon phonation, flexes SCM and trapezius muscles symmetrically with full power, tongue protrudes midline Cerebellar examination: Present: performs finger to nose and heel to white sym metrically without ataxia Results - Laboratory Findings CBC and BMP: 12/05/18 20:09 12/06/18 04:19 Abnormal lab findings: Abnormal lab results Hct 45.4 % (35.3-44.9) H 12/05/18 20:09 Chloride 109 mEq/L (98-107) H 12/06/18 04:19 Est GFR (Non-Af Amer) 59 (> 60) L 12/06/18 04:19 Glucose 135 mg/dL (70-105) H 12/06/18 04:19 Hemoglobin A1c 6.1 % (-5.6) H 12/06/18 04:19 Calcium 8.4 mg/dL (8.6-10.3) L 12/06/18 04:19 Serum Total Protein 5.4 g/dL (6.4-8.9) L 12/06/18 04:19 Globulin 1.9 g/dL (2.4-3.5) L 12/06/18 04:19 Ur Leukocyte Esterase Moderate (Negative) H 12/05/18 20:52 Urine Microscopic RBC 5-15 per hpf (0-3) H 12/05/18 20:52 Urine Microscopic WBC 30-50 per hpf (0-3) H 12/05/18 20:52 Ur Squamous Epith Cells Many per lpf (None-Few) H 04/14/19 20:52 Ur Culture Indicated? NO. (NO) A 12/05/18 20:52 Consult Discharge Plan - Plan Instructions: Cephalexin (By mouth), Meclizine (By mouth), Urinary Tract Infection in Women (DC) Referrals: Yaniv Tran, [Primary Care Provider] - (Your appointment has been requested. Our offices will call with an appointment time and date. If you do not hear from us please call [phone] and schedule an appointment.) Prescriptions: Cephalexin [Keflex] 500 mg PO TID #9 capsule Meclizine [Antivert] 12.5 mg PO BID PRN #20 tablet PRN Reason: Vertigo <Alexandro Solorio - Last Filed: 12/07/18 16:25> Date of Encounter: 12/07/18 Assessment and Plan (1) Dizziness Current Visit: Yes Status: Acute I have personally performed a [id number] assessment of the patient and have reviewed the PA/HAND STRAIGHTENER note. My impressions are as follows: Case was discussed with the neurology resident on service. I agree with his assessment and plan as outlined above. Agree with a brief outpatient course of acyclovir in the event that we are dealing with a herpetic etiology for her otalgia. Otherwise, would recommend having her follow-up with her primary care provider after discharge. He may dis charge her at your discretion. Subjective Interval history: Chart was reviewed, patient was seen and examined. Case was discussed with the neurology resident on service. Patient is doing better regard to her vertiginous symptoms. She is responding favorably to meclizine. MRI scan of the brain was negative for any evidence of acute infarct or any other intracranial process. Objective - Constitutional Vitals: Temp Pulse Resp BP Pulse Ox 97.7 F 104 19 159/70 90 12/07/18 15:58 12/07/18 15:58 12/07/18 15:58 12/07/18 15:58 12/07/18 15:58 Exam: Exam: General Examination: *CONSTITUTIONAL: normal *GENERAL APPEARANCE OF PATIENT appears healthy and well groomed *EYES: pupils equal, round, reactive to light and accommodation, conjunctiva clear without masses or ulcerations, fundi normal. *CARDIOVASCULAR no peripheral edema, distal temperature normal, dorsalis pedis pulses normal. Refer to vital signs Musculoskeletal: *GAIT AND STATION normal, with normal Romberg testing, no abnormalities such as broad base gait or spasticity *ASSESSMENT OF MUSCLE STRENGTH IN THE UPPER AND LOWER EXTREMITIES is normal strength bulk of the right deltoid, right biceps right triceps and right back end developer. She also has normal strength of the right hip flexors quadriceps right anterior tibialis and gastrocnemius muscles. There is giveaway weakness of the muscles of the left upper extremity as well as the left lower extremity. *MUSCLE TONE IN THE UPPER AND LOWER EXTREMITIES normal. No abnormal movements, fasciculations or atrophy identified. Neurological: *ORIENTATION to time and place *RECURRENT AND REMOTE MEMORY intact *ATTENTION AND CONCENTRATION are normal *LANGUAGE FUNCTION no significant aphasia or dysarthia was noted. *FUND OF KNOWLEDGE aware of current events, past history, vocabulary *MENTAL attention span and concentration normal. *CN II optic fundi were normal, no papilledema noted. *CN III,IV, PERRLA extraocular eye movements were full, no nystagmus and no ptosis noted. *CN V shows normal sensation and jaw opens symmetrically. *CN VII shows normal facial movement symmetrically, upper and lower bilaterally. *CN VIII shows no significant hearing loss on examination in the office. *CN IX,,X palate elevated symmetrically and normal gag reflex was noted. *CN XI normal strength in the sternocleidomastoid muscles, symmetrical shoulder shrugging. *CN XII tongue protruded in the midline, with normal strength and movement. *SENSORY EXAMINATION pinprick sensation intact, and light touch(vibration sense). *REFLEXES: deep tendon reflexes were normal and symmetrical , grade 2/4 diffusely, no pathological reflexes were noted. *CEREBELLAR TESTING normal finger to nose, heel/knee/white, and tandem walk. *PAIN LEVEL -0 Results - Laboratory Findings CBC and BMP: 12/05/18 20:09 12/06/18 04:19 Abnormal lab findings: Abnormal lab results Hct 45.4 % (35.3-44.9) H 12/05/18 20:09 Chloride 109 mEq/L (98-107) H 12/06/18 04:19 Est GFR (Non-Af Amer) 59 (> 60) L 12/06/18 04:19 Glucose 135 mg/dL (70-105) H 12/06/18 04:19 Hemoglobin A1c 6.1 % (-5.6) H 12/06/18 04:19 Calcium 8.4 mg/dL (8.6-10.3) L 12/06/18 04:19 Serum Total Protein 5.4 g/dL (6.4-8.9) L 12/06/18 04: Globulin 1.9 g/dL (2.4-3.5) L 12/06/18 04:19 Ur Leukocyte Esterase Moderate (Negative) H 12/05/18 20:52 Urine Microscopic RBC 5-15 per hpf (0-3) H 12/05/18 20:52 Urine Microscopic WBC 30-50 per hpf (0-3) H 12/05/18 20:52 Ur Squamous Epith Cells Many per lpf (None-Few) H 12/05/18 20:52 Ur Culture Indicated? NO. (NO) A 12/05/18 20:52
[2018-12-07] MEDS: Acyclovir 200 MG CAPSULE PO SCH ×2 (10:38→13:29)
[2018-12-07] MEDS: Acetaminophen 325 MG TABLET PO PRN (10:38)
[2018-12-07] MEDS: Lisinopril 20 MG TABLET PO SCH (10:39)
--- NOTE | 2018-12-07 15:49 | Discharge Summary ---
- NOTES TO OUTPATIENT PROVIDER Notes to Outpatient Provider: f/u with PCP in one week. f/u with Neurology Dr. Solorio in 2-4 weeks. Orders not resulted at time of discharge: Pending orders 12/06/18 16:02 NM christine perf SPECT multi [NM] Routine Date of Encounter: 12/07/18 Time of Encounter: 15:46 - Discharge Diagnosis (1) Dizziness Priority: Primary Status: Acute (2) Benign paroxysmal positional vertigo Priority: Primary Status: Chronic Qualifiers: Laterality: unspecified laterality Qualified Code(s): H81.10 - Benign paroxysmal vertigo, unspecified ear (3) Chest pain Priority: Primary Status: Acute Qualifiers: Ischemic chest pain type: unspecified angina pectoris type Qualified Code(s): I25.9 - Chronic ischemic heart disease, unspecified (4) Anxiety and depression Priority: Secondary Status: Acute (5) DVT prophylaxis Priority: Secondary Status: Acute (6) UTI (urinary tract infection) Priority: Secondary Status: Acute Qualifiers: Urinary tract infection type: site unspecified Hematuria presence: without hematuria Qualified Code(s): N39.0 - Urinary tract infection, site not specified Hospital course: Ms. Agudelo is a 78 year old female with a past medical history of coronary artery disease, CVA, GERD, hyperlipidemia, hypertension and migraine who presented to the ED with complaints of dizziness that has gotten progressively worse over the past 3 days. Yesterday she also noted slurred speech and word finding difficulties. Patient reports similar presentation during previous stroke. She also c/o chest pain, located sub sternally, non radiating and associated with diaphoresis. 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 Patient was evaluated by neurologist started on Meclizine. Her Brain MRI came back as negative for infarction. Her symptoms seems to be due to positional vertigo. For her chest pain she did go for nuclear stress test which came back is negative for any ischemia. Her UA was abnormal mostly due to contaminated, however since pt was symptomatic too will treat her with PO Abx Keflex for 5 days. - Time Spent with Patient Total time spent providing and/or coordinating discharge services: - Discharge Medications Prescriptions: New Acyclovir [Zovirax] 400 mg PO TID #12 tablet Meclizine [Antivert] 12.5 mg PO BID PRN #20 tablet PRN Reason: Vertigo Continue Lisinopril [Zestril] 20 mg PO DAILY FLUoxetine HCl [Prozac] 20 mg PO DAILY Hydrochlorothiazide [Microzide] 12.5 mg PO DAILY Atorvastatin [Lipitor] 40 mg PO HS #60 tablet Isosorbide MONOnitrate (24 HR) [Imdur] 30 mg PO DAILY Nitroglycerin [Nitrostat] 0.4 mg SL Q5M PRN PRN Reason: Chest Pain Ranolazine [Ranexa] 500 mg PO BID Pantoprazole Sodium 40 mg PO DAILY Aspirin [Lo-Dose Aspirin EC] 81 mg PO DAILY Home Medications: FLUoxetine HCl [Prozac] 20 mg PO DAILY 05/04/15 [History] Hydrochlorothiazide [Microzide] 12.5 mg PO DAILY 05/04/15 [History] Lisinopril [Zestril] 20 mg PO DAILY 05/04/15 [History] Atorvastatin [Lipitor] 40 mg PO HS #60 tablet 05/05/15 [Rx] Isosorbide MONOnitrate (24 HR) [Imdur] 30 mg PO DAILY 12/19/16 [History] Nitroglycerin [Nitrostat] 0.4 mg SL Q5M PRN 12/19/16 [History] Aspirin [Lo-Dose Aspirin EC] 81 mg PO DAILY 12/06/18 [History] Pantoprazole Sodium 40 mg PO DAILY 12/06/18 [History] Ranolazine [Ranexa] 500 mg PO BID 12/06/18 [History] Acyclovir [Zovirax] 400 mg PO TID #12 tablet 12/07/18 [Rx] Meclizine [Antivert] 12.5 mg PO BID PRN #20 tablet 12/07/18 [Rx] Allergies/Adverse Reactions: Allergy/AdvReac Type Severity Reaction Status Date / Time Latex, Natural Rubber Allergy Itching Verified 12/19/16 09:49 prednisone Allergy See Verified 12/19/16 09:49 Comments Date of admission: 12/06/18 11:32 Primary care physician: Yaniv Tran Consults: 12/06/18 03:22 Consult to Neurology [CONS] Routine Consulting Provider: [facility] Reason for Consult: CVA/TIA Call Completed: No - Constitutional Vitals: Temp Pulse Resp BP Pulse Ox 97.8 F 87 16 145/57 96 12/07/18 10:45 12/07/18 10:45 12/07/18 10:45 12/07/18 10:45 12/07/18 10:45 General appearance: Present: A&O X 3, no acute distress, answers questions appropriately Exam: Gen: Alert, awake, Oriented to time,place and person Chest: Diminished breath sounds B/L, No wheezing, No crackles, No rales Heart: S1S2+ RRR No murmurs Abd: Soft, NT, BS +, No organomegaly Ext: No edema, pulses are palpable, No calf tenderness Neuro : Benign findings, no focal neuro deficit Skin: No rash. - Patient Status Disposition: Home, Self-Care Condition: Good Overall status at discharge: patient is back to baseline - Discharge Instructions Follow Up With: Yaniv Tran DO [Primary Care Provider] - (Your appointment has been requested. Our offices will call with an appointment time and date. If you do not hear from us please call [phone] and schedule an appointment.) - Diet and Activity Activity: increase activity as tolerated
[2018-12-07 15:59] VITALS: BP 159/70
== END 2018-12-07 17:01 | disposition home or self-care (01) ==
LOC: 3BNU 19:56 → EMEROOARM 19:56 → SUATTDRO 12-06 01:28 → 3BNU 12-06 02:14
PROVIDERS: ADMIT Internal Medicine; ATTEND Family Medicine

== ENCOUNTER 2019-09-04 11:02 | Observation (INO) ==
[2019-09-04 11:52] LABS: Basophils % 0.4 %; Eosinophils # 0.1 K/mcL (0.0-0.6); Hematocrit 44.5 % (35.3-44.9); Hemoglobin 14.5 g/dL (11.5-15.4); Immature Granulocytes % 0.6 % (0-4); Lymphocytes # 1.7 K/mcL (0.6-4.6); Lymphocytes % 33.7 %; Mean Corpuscular HGB Conc 32.6 g/dL (31.6-35.5); Mean Corpuscular Hemoglobin 34.4 pg (28.0-33.3); Mean Corpuscular Volume 105.7 fL (83.0-100.0); Mean Platelet Volume 10.5 fL (9.4-12.4); Monocytes # 0.3 K/mcL (0.0-1.3); Monocytes % 6.5 %; Neutrophils # 2.8 K/mcL (1.6-8.9); Platelet Count 148 K/mcL (140-400); Red Blood Count 4.21 M/mcL (3.82-4.97); Red Cell Distribution Width 12.6 % (11.5-14.5); Segmented Neutrophils % 57.8 %; White Blood Count 4.9 K/mcL (4.3-11.1)
[2019-09-04 12:13] LABS: Prothrombin Time 11.1 Seconds (9.4-12.1)
[2019-09-04 12:16] LABS: Activated Partial Thrombo Time 33.7 Seconds (26.0-36.0)
[2019-09-04 12:19] LABS: BUN/Creatinine Ratio 21 (6-26); Blood Urea Nitrogen 18 mg/dL (8-23); Calcium 8.9 mg/dL (8.6-10.3); Carbon Dioxide 25 mEq/L (23-29); Chloride 107 mEq/L (98-107); Glucose 85 mg/dL (70-105); Osmolality,Calculated 291 (280-300); Potassium 3.9 mEq/L (3.5-5.1); Sodium 140 mEq/L (136-145); eGFR For African Americans > 60 (> 60); eGFR For Non-African Americans > 60 (> 60)
[2019-09-04 12:21] LABS: Troponin I < 0.03 ng/mL (< 0.04)
[2019-09-04] MEDS ORDERED: ALPRAZolam 0.5 MG TABLET PO PRN (15:14)
[2019-09-04] MEDS ORDERED: Mag Hydrox/Al Hydrox/Simeth 30 ML UDC PO PRN (15:15)
[2019-09-04] MEDS ORDERED: Acetaminophen 325 MG TABLET PO PRN (15:15)
[2019-09-04] MEDS ORDERED: Ondansetron 4 MG/2 ML VIAL IVP PRN (15:15)
[2019-09-04] MEDS ORDERED: *HR* Promethazine 25 MG/ML VIAL IVP PRN (15:15)
[2019-09-04] MEDS ORDERED: Naloxone 0.4 MG/ML INJ IVP PRN (15:15)
[2019-09-04] MEDS: *HR* Heparin 5,000 UNIT/ML VIAL SQ SCH (18:24)
[2019-09-05 07:19] LABS: Basophils % 0.9 %; Eosinophils # 0.1 K/mcL (0.0-0.6); Eosinophils % 1.4 %; Hematocrit 46.1 % (35.3-44.9); Hemoglobin 15.3 g/dL (11.5-15.4); Immature Granulocytes % 0.7 % (0-4); Lymphocytes # 1.6 K/mcL (0.6-4.6); Lymphocytes % 36.6 %; Mean Corpuscular HGB Conc 33.2 g/dL (31.6-35.5); Mean Corpuscular Hemoglobin 34.2 pg (28.0-33.3); Mean Corpuscular Volume 102.9 fL (83.0-100.0); Mean Platelet Volume 10.6 fL (9.4-12.4); Monocytes # 0.3 K/mcL (0.0-1.3); Monocytes % 7.8 %; Neutrophils # 2.3 K/mcL (1.6-8.9); Platelet Count 180 K/mcL (140-400); Red Blood Count 4.48 M/mcL (3.82-4.97); Red Cell Distribution Width 12.5 % (11.5-14.5); Segmented Neutrophils % 52.6 %; White Blood Count 4.3 K/mcL (4.3-11.1)
[2019-09-05 07:43] LABS: BUN/Creatinine Ratio 16 (6-26); Blood Urea Nitrogen 16 mg/dL (8-23); Carbon Dioxide 29 mEq/L (23-29); Chloride 106 mEq/L (98-107); Glucose 97 mg/dL (70-105); Osmolality,Calculated 299 (280-300); Potassium 4.3 mEq/L (3.5-5.1); Sodium 144 mEq/L (136-145); eGFR For African Americans > 60 (> 60); eGFR For Non-African Americans 53 (> 60)
[2019-09-05 07:55] LABS: Thyroid Stimulating Hormone 3.042 mcIU/mL (0.340-5.600)
[2019-09-05] MEDS ORDERED: FLUoxetine 20 MG CAPSULE PO SCH (09:00)
[2019-09-05] MEDS ORDERED: Isosorbide MONOnitrate (24 HR) 30 MG TAB.ER.24H PO SCH (09:00)
[2019-09-05] MEDS ORDERED: Lisinopril 20 MG TABLET PO SCH (09:00)
[2019-09-05] MEDS ORDERED: Aspirin Enteric Coated 81 MG Tablet PO SCH (09:00)
[2019-09-05] MEDS ORDERED: hydroCHLOROthiazide 25 MG TABLET PO SCH (09:00)
[2019-09-05] MEDS: *HR* Heparin 5,000 UNIT/ML VIAL SQ SCH ×2 (09:50→16:29)
[2019-09-05 16:24] VITALS: BP 107/66
== END 2019-09-05 17:12 | disposition home or self-care (01) ==
LOC: EMEROOARM 11:02 → 3BNU 11:02
PROVIDERS: ADMIT Internal Medicine; ATTEND Internal Medicine